=== PATIENT | male | born 1935 ===

== ENCOUNTER 2023-04-14 15:02 | Outpatient (CLI) | payer OTHER, SELFPAY ==
--- NOTE | ~2023-04-14 | US_ITS ---
EXAMINATION: US soft tissue head and neck DATE: 04/14/2023 15:37 INDICATION: Lump at the right cheek TECHNIQUE: Multiple grayscale and Doppler ultrasound images of the region of concern at the right beata ek were obtained. COMPARISON: None FINDINGS: There are 3 small likely benign, simple appearing anechoic anechoic cystic lesions in the anterior ri ght parotid lobe, the largest measuring 11 x 8 x 11 mm and the 2 smaller lesions measuring 2 mm and 3 mm in maximal diameters. No evident solid soft tissue component to suggest a malignant etiology. Reviewed, dictated and finalized at location A.
== END 2023-04-14 15:03 | disposition home or self-care (01) ==
PROVIDERS: PCP Family Medicine; Visit Provider Emergency Medicine
DX: R22.0 Localized swelling, mass and lump, head (principal)
CPT/HCPCS: 76536